=== PATIENT | female | born 1935 | race Caucasian/White ===

== ENCOUNTER 2017-03-11 17:15 | Emergency (ER) | payer MEDICARE ==
[~2017-03-11] VITALS: Ht 170.2 cm; Wt 104.5 kg
[~2017-03-11 17:15] MED LIST: CALC600T10 PO; CART120C2 PO; DIAZ10TA2 PO; DIAZ5 PO; DIPH25 PO; DORZSOL LEFT EYE; GABA100C4 PO; LEVO50TA4 PO; LEXA20TA PO; LOSA50TA PO; MINEOIL PO; OXYC10TA8 PO; PACE200T4 PO; PRAV40TA PO; RIVA10 PO; SM A2CRE3 TOPICAL; TAB-TAB PO; VITATAB25 PO
[2017-03-11 17:49] VITALS: BP 162/72; PULSE 61; RESP 20; TEMP 98.8; O2SAT 94
[2017-03-11 17:52] VITALS: BP 162/72; PULSE 61; RESP 20; O2SAT 92
[2017-03-11 17:54] VITALS: O2SAT 93
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
[2017-03-11] MEDS ORDERED: SODIUM CHLORIDE 0.9% FLUSH 10 ML FLUSH IV FLUSH PRN (18:00)
[2017-03-11] MEDS ORDERED: THERTAB17 PO (18:21)
[2017-03-11] MEDS ORDERED: ZINC20OI TOPICAL (18:21)
[2017-03-11] MEDS ORDERED: CARD120T4 PO (18:21)
[2017-03-11] MEDS ORDERED: XARE20TA PO (18:21)
[2017-03-11] MEDS ORDERED: LEVO.075 PO (18:21)
[2017-03-11] MEDS ORDERED: PERC5TAB12 PO (18:21)
[2017-03-11] MEDS ORDERED: POTA-88 PO (18:21)
[2017-03-11] MEDS ORDERED: NYST1000 PO (18:21)
[2017-03-11] MEDS ORDERED: SACC1CAP3 PO (18:21)
[2017-03-11] MEDS ORDERED: AMIO400T PO (18:21)
[2017-03-11] MEDS ORDERED: FURO1TAB60 PO (18:21)
[2017-03-11] MEDS ORDERED: LAMO25 PO (18:21)
[2017-03-11] MEDS ORDERED: GABA100C4 PO (18:21)
[2017-03-11] MEDS ORDERED: LEXA20TA PO (18:21)
[2017-03-11] MEDS ORDERED: NYST15T TOPICAL (18:21)
[2017-03-11] MEDS ORDERED: SERO100T PO (18:21)
[2017-03-11] MEDS ORDERED: LIPI40TA PO (18:21)
--- NOTE | 2017-03-11 18:33 | RADRPT ---
EXAM DATE/TIME: 03/11/2017 18:22 [facility] COMPARISON: No previous studies available for comparison. INDICATIONS : Head pain due to fall. RADIATION DOSE: 39.71 CTDIvol (mGy) MEDICAL HISTORY : Cardiovascular disease. Hypertension. Deep venous thrombosis.COPD. SURGICAL HISTORY : Hysterectomy. ENCOUNTER: Initial ACUITY: 1 day PAIN SCALE: 4/10 LOCATION: Right cranial TECHNIQUE: Multiple contiguous axial images were obtained of the head. Using automated exposure control and adj ustment of the mA and/or kV according to patient size, radiation dose was kept as low as reasonably a chievable to obtain optimal diagnostic quality images. DICOM format image data is available electro nically for review and comparison. FINDINGS: CEREBRUM: The ventricles are normal for age. No evidence of midline shift, mass lesion, hemorrhage or acute in farction. No extra-axial fluid collections are seen. POSTERIOR FOSSA: The cerebellum and brainstem are intact. The 4th ventricle is midline. The cerebellopontine angle i s unremarkable. EXTRACRANIAL: The visualized portion of the orbits is intact. Calcifications in internal carotid arteries in the si phon SKULL: The calvaria is intact. No evidence of skull fracture. CONCLUSION: Normal examination for a patient of this age. Milan Antonio MD on March 11, 2017 at 18:30 Board Certified Radiologist. This report was verified electronically.
--- NOTE | 2017-03-11 18:34 | RADRPT ---
EXAM DATE/TIME: 03/11/2017 18:15 [facility] COMPARISON: HIP RIGHT (AP&LAT 2/3VWS) WO AP PELVIS, June 06, 2015, 13:30. INDICATIONS : Pelvis pain post fall today MEDICAL HISTORY : None. SURGICAL HISTORY : Right total hip replacement ENCOUNTER: Initial ACUITY: 1 day PAIN SCORE: 10/10 LOCATION: Pelvis FINDINGS: A single frontal view of the pelvis demonstrates no evidence of fracture. The bony pelvic ring is in tact. Bony mineralization is normal. The soft tissues are intact. Total right hip prosthesis in judy ce well-seated . Mild degenerative changes lower lumbar spine CONCLUSION: No acute bony injury. Right total hip prosthesis well seated Milan Antonio MD on March 11, 2017 at 18:31 Board Certified Radiologist. This report was verified electronically.
--- NOTE | 2017-03-11 18:49 | RADRPT ---
EXAM DATE/TIME: 03/11/2017 18:22 [facility] COMPARISON: No previous studies available for comparison. INDICATIONS : Neck pain due to fall. RADIATION DOSE: 22.63 CTDIvol (mGy) MEDICAL HISTORY : Hypertension. Chronic obstructive pulmonary disease. Deep venous thrombosis.CVA, Cardiac. SURGICAL HISTORY : Hysterectomy. ENCOUNTER: Initial ACUITY: 1 day PAIN SCALE: 4/10 LOCATION: Left neck region. TECHNIQUE: Volumetric scanning of the cervical spine was performed. Multiplanar reconstructions in the sagittal, coronal and oblique axial planes were performed. Using automated exposure control and adjustment o f the mA and/or kV according to patient size, radiation dose was kept as low as reasonably achievable to obtain optimal diagnostic quality images. DICOM format image data is available electronically f or review and comparison. FINDINGS: Bony structures are intact and normal in alignment no evidence of fracture, compression, subluxation or destructive change. Remote anterior cervical fusion C567 is appreciated with intervertebral disc g rafts and union across this. Their are multilevel posterior lateral mass arthritic changes most promi nent levels of C3-4 on the left but involving other areas caudad CONCLUSION: No acute bony injury. Remote anterior cervical fusion C5-6-7 and degenerat ron findings as described above Milan Antonio MD on March 11, 2017 at 18:44 Board Certified Radiologist. This report was verified electronically.
[2017-03-11 19:16] VITALS: BP 144/67; PULSE 61; RESP 20; O2SAT 93
[2017-03-11 19:58] LABS: BACTERIA, URINE MOD /hpf; BLOOD, URINE SMALL (NEG); COMMENT (UR) CATH-CULTURE IND; CULTURE IF INDICATED CATH CULTURE IND; GLUCOSE,URINE NEG (NEG); KETONE, URINE NEG (NEG); NITRITE,URINE NEG (NEG); PH, URINE 5.5 (5.0-8.5); SQUAMOUS EPITHELIAL CELL URINE <1 /hpf (0-5); URINE COLOR YELLOW (YELLW/STRAW)
[2017-03-11] MEDS ORDERED: BACT800T5 PO (20:04)
== END 2017-03-11 22:43 | disposition home or self-care (01) ==
LOC: NEPE 17:15
DX: S09.90XA Unspecified injury of head, initial encounter (principal); S00.03XA Contusion of scalp, initial encounter; N39.0 Urinary tract infection, site not specified; B96.89 Other specified bacterial agents as the cause of diseases classified elsewhere; F17.210 Nicotine dependence, cigarettes, uncomplicated; W05.0XXA Fall from non-moving wheelchair, initial encounter; Y92.129 Unspecified place in nursing home as the place of occurrence of the external cause; Z79.01 Long term (current) use of anticoagulants
CPT/HCPCS: 70450; 72125; 72170; 81001; 87086; 87106; 99285; P9612